=== PATIENT | male | born 2000 | race African-American/Black ===

== ENCOUNTER 2024-06-08 18:05 | Emergency (ER) | payer OTHER ==
[2024-06-08 18:21] VITALS: BP 123/77; PULSE 90; RESP 20; TEMP 98.4; BMI 23.1
[2024-06-08] MEDS ORDERED: SODIUM CHLORIDE 1,000 ML IV STA (18:54)
[2024-06-08] MEDS ORDERED: ACETAMINOPHEN 1000 MG/100 ML BAG IVPB ONE (18:54)
[2024-06-08] MEDS ORDERED: ACETAMINOPHEN 500 MG TABLET (FP) ONE ×2 (20:27→20:31)
[2024-06-08] MEDS: ACETAMINOPHEN 500 MG TABLET (FP) PO ONE (20:32)
== END 2024-06-08 20:59 | disposition home or self-care (01) ==
LOC: JER 18:05
DX: G44.89 Other headache syndrome (principal); M54.2 Cervicalgia
CPT/HCPCS: 70450-TC; 72125-TC; 99284-25